=== PATIENT | female | born 1975 | race Caucasian/White ===

== ENCOUNTER 2021-12-04 16:07 | Outpatient (CLI) | payer BC, SELFPAY ==
[2021-12-04 21:19] LABS: Chloride* 105 mmol/L (96-114); Potassium* 4.1 mmol/L (3.6-5.1); Sodium* 136 mmol/L (135-149)
[2021-12-04 21:22] LABS: Blood Urea Nitrogen* 16 mg/dL (5-24); Carbon Dioxide* 26 mmol/L (20-32); Creatinine* 0.6 mg/dL (0.5-1.5); Estimated Glomerular Filt Rate 113 ml/min; Glucose* 103 mg/dL (60-115)
[2021-12-04 21:55] LABS: Thyroid Stimulating Hormone* 0.876 uIU/mL (0.270-4.20)
== END 2021-12-04 16:08 | disposition home or self-care (01) ==
PROVIDERS: Visit Provider Registered Nurse
DX: R52 Pain, unspecified (principal)
CPT/HCPCS: 80048; 84443; 87086